=== PATIENT | female | born 1980 | race Caucasian/White ===

== ENCOUNTER → 2016-04-28 | Outpatient (CLI) | payer OTHER ==
[~2016-04-28] MED LIST: OMEG10007 PO; PRENTAB26 PO
== END | disposition home or self-care (01) ==
LOC: C.PAPS 11:48
PROVIDERS: ATTEND Obstetrics & Gynecology
DX: Z12.4 Encounter for screening for malignant neoplasm of cervix (principal)

== ENCOUNTER → 2016-12-29 | Outpatient (CLI) | payer OTHER ==
[~2016-12-29] MED LIST changes: +GADAVIST IV PRN
--- NOTE | 2017-01-01 08:02 | MAMMOGRAPHY REPORT ---
BREAST MRI OF BOTH BREASTS : 12/29/2016 CLINICAL HISTORY: Strong family history of breast cancer. 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 COMPARISON: Comparison is made to exams dated: 10/06/2015 mammogram, 11/05/2015 breast MRI, 05/27/2014 u ltrasound biopsy, and 05/25/2014 ultrasound - [facility]. Technique: The patient was placed prone in a dedicated breast imaging coil. Precontrast axial T1-elkin ghted, axial T2-weighted fat saturation, and axial T1-weighted fat saturation images were obtained. After the administration of 6 mL of Gadavist IV contrast, sequential T1-weighted fat saturation image s were obtained. Subtraction images were obtained of the dynamic contrast enhanced sequences, and 3- D reformations were performed. The Hango software was used for kinetic analysis. Findings: There is moderate background parenchymal enhancement in bilateral breasts which reduces the sensitivi ty of the exam. Susceptibility artifact is seen within the left anterior breast from prior surgical excisional biopsy. There are multiple small foci of enhancement seen scattered in bilateral breasts, which are considered benign given the multiplicity and bilaterality and felt to represent normal back ground parenchymal enhancement. There are no suspicious enhancing masses or areas of abnormal non-ma ss enhancement within either breast. There is no evidence of axillary adenopathy. The chest wall structures are negative. Extramammary s oft tissues are unremarkable. IMPRESSION: ACR BI-RADS CATEGORY 2: BENIGN No MRI evidence of malignancy in either breast. Recommend continuation with annual screening mammogra phy and breast MRI given the strong family history of breast cancer. Yeimy Conde M.D. /:12/30/2016 17:19:41 Gang Bore Operator: sealer dry cell, [facility] letter sent: Normal 1/2 BI-RADS Code: ACR BI-RADS Category 2: Benign
== END | disposition home or self-care (01) ==
LOC: C.MRI 13:13
PROVIDERS: ATTEND Obstetrics & Gynecology
DX: D24.2 Benign neoplasm of left breast (principal); Z80.3 Family history of malignant neoplasm of breast

== ENCOUNTER → 2016-12-29 | Outpatient (CLI) | payer OTHER ==
[~2016-12-29] MED LIST changes: -GADAVIST IV PRN
--- NOTE | 2017-01-01 08:02 | MAMMOGRAPHY REPORT ---
BILATERAL DIGITAL SCREENING MAMMOGRAM TOMOSYNTHESIS WITH CAD: 12/29/2016 CLINICAL HISTORY: Routine screening. Patient has no complaints. TECHNIQUE: Breast tomosynthesis in addition to standard 2D mammography was performed. Current study was also evaluated with a Computer Aided Detection (CAD) system. COMPARISON: Comparison is made to exams dated: 12/29/2016 breast MRI, 11/05/2015 breast MRI, 10/06/2015 mammogram, 06/22/2014 specimen, 06/22/2014 localization, and 05/27/2014 ultrasound biopsy - [facility]. BREAST COMPOSITION: The tissue of both breasts is extremely dense, which lowers the sensitivity of m ammography. FINDINGS: No suspicious masses, calcifications, or areas of architectural distortion are noted in ei ther breast. There has been no significant interval change compared to prior exams. A linear scar ma rker denotes a scar on the left breast. There are stable postsurgical changes in the left anterior b reast from prior surgical excision which yielded an adenoma. Scattered faint benign-appearing calcif ications within the left breast are stable. IMPRESSION: ACR BI-RADS CATEGORY 2: BENIGN There is no mammographic evidence of malignancy. A 1 year screening mammogram is recommended. The pa tient will receive written notification of the results. Approximately 10% of breast cancers are not detected with mammography. A negative mammographic report should not delay biopsy if a clinically suggestive mass is present. Yeimy Conde M.D. /:12/29/2016 17:18:00 Conveyor Feeder Offbearer: Cora Bonner, M, [facility] letter sent: Normal 1/2 BI-RADS Code: ACR BI-RADS Category 2: Benign
== END | disposition home or self-care (01) ==
LOC: C.MAMM 14:12
PROVIDERS: ATTEND Obstetrics & Gynecology
DX: Z12.31 Encounter for screening mammogram for malignant neoplasm of breast (principal)